=== PATIENT | female | born 1965 | race American Indian/Alaskan Native ===

== ENCOUNTER 2016-10-26 06:37 | Emergency (ER) | payer OTHER ==
[2016-10-26 07:09] VITALS: BMI 52.2
[2016-10-26 08:37] VITALS: BP 130/74; PULSE 76; TEMP 97.7
[2016-10-26] MEDS ORDERED: diazePAM 5 MG TABLET PO ONE (09:08)
[2016-10-26] MEDS ORDERED: morphine CARPU-JECT 2 MG/1 ML DISP.SYRIN SQ ONE (09:09)
[2016-10-26] MEDS ORDERED: diazePAM 5 MG TABLET ONE (09:12)
--- NOTE | 2016-10-26 09:24 | PDOC ---
History of Present Illness - General Chief Complaint: Headache Stated Complaint: HEADACHE,NAUSEA Time Seen by Provider: 10/26/16 08:35 History Source: Patient Exam Limitations: No Limitations - History of Present Illness Initial Comments: 10/26/16 09:24 51 yr old female presents to the ED with c/o headache for 2 days since awakening and states pain has worsened in severity over the past 2 days causing her difficulty with movement and radiation to her left occipital region. Patient states pain is worsened with movement but states she is now having light sensitivity and mild nausea. Patient denies recent fall, recent injury, recent dental work, throat pain, ear pain, or fever/chills. Patient states had been taking Flexeril at home 3 times a day since she has it for her arthritis and low back along with Percocets with no improvement. Patient denies any rash, swelling, recent change in medications, recent travel. Patient states has history of migraines but hasn't had one in about 10 years. Timing/Duration: reports: increasing Severity: Yes: moderate Associated Symptoms: reports: nausea/vomiting (nausea only). denies: numbness in legs/feet, paresthesia, slurred speech, trouble walking, vision changes, weakness Past History - Past Medical History Allergies/Adverse Reactions: Allergies Allergy/AdvReac Type Severity Reaction Status Date / Time No Known Allergies Allergy Verified 10/26/16 07:05 Home Medications: Ambulatory Orders Acetaminophen/Caffeine/Butalb [Fioricet -] 1 tab PO Q6H PRN #24 tablet MDD 4 10/07 Diazepam [Valium] 5 mg PO Q8H PRN #15 tablet MDD 3 10/26/16 Cardiac Disorders: Yes COPD: Yes (O2 DEPENDANT) HTN: Yes - Surgical History Cholecystectomy: Yes - Psycho/Social/Smoking Cessation Hx Suicidal Ideation: No Smoking History: Current some day smoker Have you smoked in the past 12 months: Yes Number of Cigarettes Smoked Daily: 20 If you are a former smoker, when did you quit?: 03/30/16 Information on smoking cessation initiated: No 'Breaking Loose' booklet given: 03/30/16 Hx Alcohol Use: No Drug/Substance Use Hx: No Substance Use Type: None Hx Substance Use Treatment: No Patient Lives Alone: No Lives with/in: spouse/SO Review of Systems - Review of Systems Able to Perform ROS?: Yes Constitutional: No: Symptoms Reported HEENTM: No: Symptoms Reported Respiratory: No: Symptoms reported Cardiac (ROS): No: Symptoms Reported ABD/GI: Yes: Nausea : No: Symptoms Reported Musculoskeletal: Yes: Muscle Pain, Neck Pain Integumentary: No: Symptoms Reported Neurological: Yes: Headache Endocrine: No: Symptoms Reported Hematologic/Lymphatic: No: Symptoms Reported *Physical Exam - Vital Signs Last Vital Signs Temp Pulse Resp BP Pulse Ox 97.7 F 76 16 130/74 99 10/26/16 08:19 10/26/16 08:19 10/26/16 08:19 10/26/16 08:19 10/26/16 08:19 - Physical Exam General Appearance: Yes: Nourished, Appropriately Dressed. No: Apparent Distress HEENT: positive: EOMI, IVY. negative: Pale Conjunctivae Neck: positive: Tender (left scm/ left occipital ), Supple Respiratory/Chest: positive: Lungs Clear, Normal Breath Sounds. negative: Respiratory Distress, Accessory Muscle Use Cardiovascular: positive: Regular Rhythm, Regular Rate. negative: Murmur Extremity: positive: Normal Capillary Refill. negative: Pedal Edema Integumentary: positive: Normal Color, Warm, Moist. negative: Rash Neurologic: positive: Motor Strength 5/5 (ambulatory) ED Treatment Course - RADIOLOGY Radiology Studies Ordered: Category Date Time Status HEAD CT WITHOUT CONTRAST [CT] Stat CT Scan 10/26/16 09:09 Ordered - Medications Given in the ED: ED Medications Discontinued Medications Generic Name Dose Route Start Last Admin Trade Name Freq PRN Reason Stop Dose Admin Diazepam 10 mg 10/26/16 09:08 10/26/16 09:13 Valium - PO 10/26/16 09:09 10 mg ONCE ONE Administration Morphine Sulfate 4 mg 10/26/16 09:09 10/26/16 09:14 Morphine Injection - SQ 10/26/16 09:10 Not Given ONCE ONE Medical Decision Making - Medical Decision Making 10/26/16 09:33 Patient with worsening left neck pain for the past 2 days worsening to her left occipital region. Patient on exam had point tenderness to her left SCM and left occipital. Patient otherwise had no decreased range of motion except on rotation to the left and mild flexion patient's skin intact and likely due to muscle spasm. Patient does complain of photophobia and mild nausea. Patient also ordered for head CT. Patient currently takes Percocet and Flexeril patient ordered for morphine and Valium for pain control. 10/26/16 10:[address] shows no evidence of acute intracranial hemorrhage, edema, midline shift , mass effect or skull fracture. There is no evidence of acute territorial ischemic changes. Patient will be discharged home with Valium and fioricet. *DC/Admit/Observation/Transfer Diagnosis at time of Disposition: Strain of cervical portion of left trapezius muscle, Muscle spasms of neck - Discharge Dispostion Disposition: HOME Condition at time of disposition: Improved - Prescriptions Prescriptions: Acetaminophen/Caffeine/Butalb [Fioricet -] 1 tab PO Q6H PRN #24 tablet MDD 4 PRN Reason: Headache Diazepam [Valium] 5 mg PO Q8H PRN #15 tablet MDD 3 PRN Reason: Muscle Spasms - Referrals Referrals: Brittanie Burris MD [Primary Care Provider] - - Patient Instructions Printed Discharge Instructions: DI for Neck Pain, DI for Torticollis Additional Instructions: Although you have not been diagnosed with torticollis it does give informative information in regards to muscle spasm, rest, and aftercare that is similar to your symptoms. Please take medication as needed as prescribed
== END 2016-10-26 11:05 | disposition home or self-care (01) ==
LOC: JER 06:37
DX: S16.1XXA Strain of muscle, fascia and tendon at neck level, initial encounter (principal); M62.838 Other muscle spasm; X58.XXXA Exposure to other specified factors, initial encounter; Y93.89 Activity, other specified; Y92.89 Other specified places as the place of occurrence of the external cause; I10 Essential (primary) hypertension; J44.9 Chronic obstructive pulmonary disease, unspecified; Z99.81 Dependence on supplemental oxygen; F17.210 Nicotine dependence, cigarettes, uncomplicated
CPT/HCPCS: 70450-TC; 99281-25